=== PATIENT | female | born 1965 | race Caucasian/White ===

== ENCOUNTER → 2018-03-10 | Outpatient (CLI) | payer BC ==
--- NOTE | 2018-03-10 09:11 | CT ---
EXAMINATION TYPE: CT angio chest DATE OF EXAM: 03/10/2018 COMPARISON: NONE HISTORY: Left sided chest pain with shortness of breath. Abnormal d-dimer. CT DLP: 508 mGycm. Automated Exposure Control for Dose Reduction was Utilized. CONTRAST: CTA scan of the thorax is performed with IV Contrast, patient injected with 100 mL of Isovue 370, pul monary embolism protocol. MIP Images are created on CT scanner and reviewed. FINDINGS: LUNGS: The lungs are grossly clear, there is no concerning parenchymal mass or nodule identified. T here is no pleural effusion or pneumothorax seen. The tracheobronchial tree is patent. MEDIASTINUM: There is satisfactory enhancement of the pulmonary artery and its branches, there is no CT evidence for pulmonary embolism. There are no greater than 1 cm mediastinal lymph nodes. There a re prominent borderline enlarged bilateral hilar lymph nodes. There is prominent but subcentimeter pe ricarinal lymph node axial image 52. No cardiomegaly or pericardial effusion is seen. OTHER: There are bilateral subpectoral breast implants redemonstrated. There are 2 hyperdense nodules in the left breast medially 9 mm and laterally 12 mm axial image 50, more prominent nodularity was s een on 2013 mammogram which is most recent mammogram at this institution. Same day ultrasound showed multiple thin-walled cysts. Correlate clinically. I would advise repeat mammogram and/or ultrasound i f has not been performed in last year. IMPRESSION: 1. No CT evidence for acute pulmonary embolism. No suspicious acute pulmonary process. 2. Attention to left breast as detailed above.
== END | disposition home or self-care (01) ==
LOC: RADCTMAIN 08:27
PROVIDERS: ATTEND Internal Medicine
DX: R06.02 Shortness of breath (principal); R79.1 Abnormal coagulation profile; Z87.898 Personal history of other specified conditions
CPT/HCPCS: 71275; Q9967

== ENCOUNTER → 2018-04-06 | Outpatient (CLI) | payer BC ==
--- NOTE | 2018-04-07 09:07 | MM ---
Reason for exam: clinical finding. Last mammogram was performed 6 years and 1 month ago. History: Patient is postmenopausal. Family history of premenopausal breast cancer in maternal aunt at age 40 and breast cancer in maternal grandmother at age 80. Retro-pectoral saline implants in both breasts, December 2007. Indicated problem(s): lump or thickening in the left breast. Physical Findings: Nurse Summary: 0.5/1cm nodule in the left breast at 1 o'clock and a 1 x 1cm nodule in the left breast at 10 o'clock (nurse ts). MG 3D Diag Mammo Imp W/Cad CINDY Bilateral CC and MLO view(s) were taken. Prior study comparison: March 08, 2012, CAD bilateral diagnostic mammogram. November 12, 2008, bilateral diagnostic digital mammog. The breast tissue is heterogeneously dense. This may lower the sensitivity of mammography. Finding #1: There are typically benign round calcifications in both breasts. Finding #2: There are two circumscribed round massex in the left breast at palpable abnormality. Bilateral subpectoral implants. New finding and decrease in size since March 08, 2012. These results were verbally communicated with the patient and result sheet given to the patient on 04/06/18. ASSESSMENT: Incomplete: need additional imaging evaluation, BI-RAD 0 RECOMMENDATION: Ultrasound of the left breast.
--- NOTE | 2018-04-07 09:31 | USB ---
Reason for exam: additional evaluation requested from abnormal screening. History: Patient is postmenopausal. Family history of premenopausal breast cancer in maternal aunt at age 40 and breast cancer in maternal grandmother at age 80. Retro-pectoral saline implants in both breasts, December 2007. US Breast LT Left complete breast ultrasound includes all four quadrants, the retroareolar region and axilla. Finding demonstrates a 0.2 x 0.3 x 0.3cm oval, cystic lesion at 12 o'clock, a 1.5 x 1.7 x 1.1cm oval, cystic lesion at 2 o'clock BB, a 1.3 x 1.1 x 0.9cm oval, cystic complex lesion at 10 o'clock debris filled cyst corresponding to larger simple cyst and a 1.1 x 1.2 x 0.6cm oval node at the left axilla. These results were verbally communicated with the patient and result sheet given to the patient on 04/06/18. ASSESSMENT: Probably benign, BI-RAD 3 RECOMMENDATION: Ultrasound of the left breast in 6 months.
== END | disposition home or self-care (01) ==
LOC: RADMAMWWP 13:27
PROVIDERS: ATTEND Internal Medicine
DX: N63.20 Unspecified lump in the left breast, unspecified quadrant (principal)
CPT/HCPCS: 77062; 77066

== ENCOUNTER → 2018-09-13 | Outpatient (CLI) | payer BC ==
--- NOTE | 2018-09-13 15:48 | BD ---
EXAMINATION TYPE: Axial Bone Density DATE OF EXAM: 09/13/2018 COMPARISON: NONE CLINICAL HISTORY: M [age] Height: 5FT 4 IN Weight: 167 FRAX RISK QUESTIONS: Secondary Osteoporosis: Current Tobacco Use: YES RISK FACTORS HISTORY OF: Postmenopausal woman: AGE 49 MEDICATIONS: Additional Medications: METOPROLOL, LIPITOR, CHANTEX Additional History: EXAM MEASUREMENTS: Bone mineral densitometry was performed using the [employer]. Bone mineral density as measured about the Lumbar spine is: ----- L1-L4(G/cm2): 1.123 T Score Values are as follows: ----- L2: -1.1 ----- L3: -0.5 ----- L4: 0.3 ----- L1-L4: -0.5 BASELINE Bone mineral density about the R hip (g/cm2): 0.903 Bone mineral density about the L hip (g/cm2): 0.905 T Score values are as follows: -----R Neck: -1.0 -----L Neck: -1.0 -----R Total: -0.2 -----L Total: -0.5 BASELINE IMPRESSION: Borderline osteopenia (T Score between -2.5 and -1). There is slightly increased risk of fracture and the patient may be considered for treatment. Re-Screen 2-5 years. NOTE: T-SCORE=SD OF THE YOUNG ADULT MEAN.
== END | disposition home or self-care (01) ==
LOC: RADBDWWP 14:07
PROVIDERS: ATTEND Internal Medicine
DX: M85.89 Other specified disorders of bone density and structure, multiple sites (principal)
CPT/HCPCS: 77080

== ENCOUNTER → 2018-09-22 | Outpatient (CLI) | payer BC ==
--- NOTE | 2018-09-22 11:23 | USB ---
Reason for exam: follow-up at short interval from prior study. History: Patient is postmenopausal. Family history of premenopausal breast cancer in maternal aunt at age 40 and breast cancer in maternal grandmother at age 80. Retro-pectoral saline implants in both breasts, December 2007. Physical Findings: Nurse Summary: palpable at left 11 o'clock 0.25 x 0.25cm (nurse cw). US Breast LT Left complete breast ultrasound includes all four quadrants, the retroareolar region and axilla. Finding demonstrates a 2 x 2 x 2mm oval, cystic, probably benign lesion at 12 o'clock (2 x 3 x 3mm on prior of 04/06/18), a 13 x 9 x 15mm oval, cystic, benign lesion at 2 o'clock and a 12 x 9 x 10mm oval, mixed, complicated cyst at 10 o'clock BB. These results were verbally communicated with the patient and result sheet given to the patient on 09/22/18. ASSESSMENT: Probably benign, BI-RAD 3 RECOMMENDATION: Follow-up diagnostic mammogram of both breasts in 6 months. Ultrasound of the left breast in 6 months.
== END | disposition home or self-care (01) ==
LOC: RADUSWWP 10:08
PROVIDERS: ATTEND Internal Medicine
DX: R92.8 Other abnormal and inconclusive findings on diagnostic imaging of breast (principal)

== ENCOUNTER → 2019-03-16 | Day surgery (SDC) | payer BC ==
[~2019-03-16] MED LIST: LACTATED RINGERS 1,000 ML IV SCH; LIDOCAINE 1% 20 ML VIAL (10MG/ML) FOR IV START INTRADERMA ONE; LIDOCAINE 1% 20 ML VIAL (10MG/ML) FOR IV START INTRADERMA PRN; LIDOCAINE 1% INJ 10MG/ML (20 ML MDV) ONE; PROPOFOL 10 MG/ML 20 ML VIAL IV ONE
[2019-03-16 08:46] VITALS: TEMP 97.9
--- NOTE | 2019-03-16 09:14 | P.GSHP ---
History of Present Illness H&P Date: 03/16/19 Chief Complaint: Colon cancer screening Patient presents today for screening colonoscopy. She has not had one previously. No bowel related complaints. No family history of colon cancer. Past Medical History Past Medical History: Hyperlipidemia, Hypertension History of Any Multi-Drug Resistant Organisms: None Reported Past Surgical History: Breast Surgery Additional Past Surgical History / Comment(s): BREAST AUGMENTATION Past Anesthesia/Blood Transfusion Reactions: No Reported Reaction Smoking Status: Former smoker - Past Family History Father Family Medical History: Cancer Mother Family Medical History: Cancer Medications and Allergies Home Medications Medication Instructions Recorded Confirmed Type Atorvastatin [Lipitor] 20 mg PO DAILY 03/14/19 03/16/19 History Calcium Carbonate/Vitamin D3 1 each PO DAILY 03/14/19 03/16/19 History [Calcium 600-Vit D3 200 Tablet] Irbesartan [Avapro] 150 mg PO DAILY 03/14/19 03/16/19 History L.acidoph,Paracasei, B.lactis 1 each PO DAILY 03/14/19 03/16/19 History [Probiotic] Metoprolol Tartrate [Lopressor] 50 mg PO BID 03/14/19 03/16/19 History Multivitamins, Thera [Multivitamin 1 tab PO DAILY 03/14/19 03/16/19 History (formulary)] Allergies Allergy/AdvReac Type Severity Reaction Status Date / Time Sulfa (Sulfonamide Allergy Rash/Hives Verified 03/16/19 08:44 Antibiotics) Surgical - Exam Vital Signs Temp Pulse Resp BP Pulse Ox 97.9 F 89 16 165/81 100 03/16/19 08:44 03/16/19 08:44 03/16/19 08:44 03/16/19 08:44 03/16/19 08:44 Physical exam: General: Well-developed, well-nourished HEENT: Normocephalic, sclerae nonicteric Abdomen: Nontender, nondistended Extremities: No edema Neuro: Alert and oriented Assessment and Plan (1) Colon cancer screening Narrative/Plan: Will proceed with colonoscopy Current Visit: Yes Status: Acute Code(s): Z12.11 - ENCOUNTER FOR SCREENING FOR MALIGNANT NEOPLASM OF COLON SNOMED Code(s): 424926364
--- NOTE | 2019-03-16 09:29 | P.PCN ---
Date of Procedure: 03/16/19 Procedure(s) Performed: PREOPERATIVE DIAGNOSIS: Colon cancer screening POSTOPERATIVE DIAGNOSIS: Diverticulosis PROCEDURE: Colonoscopy ANESTHESIA: MAC SURGEON: Donal Nunez M.D. SPECIMENS: None ENDOSCOPIC PROCEDURE: The patient was placed on the endoscopy table in the left decubitus position. The Olympus colonoscope was inserted into the anus and passed under direct visualization to the base of the cecum. The appendiceal orifice was visualized. From that point the scope was slowly withdrawn inspe cting all surfaces carefully. There were no neoplastic inflammatory or polypoid lesions throughout the cecum, ascending, transverse, descending, sigmoid and rectum. There was no visible diverticulosis noted. Digital rectal examination was normal. The patient was taken to the recovery room in stable condition per anesthesia guidelines. RECOMMENDATIONS: Increase fiber. Follow-up colonoscopy 10 years
[2019-03-16 10:15] VITALS: BP 112/78; PULSE 69; RESP 20
== END ==
LOC: ORWHC2ENDO 08:25
PROVIDERS: ATTEND Surgery
DX: Z12.11 Encounter for screening for malignant neoplasm of colon (principal); I10 Essential (primary) hypertension; E78.5 Hyperlipidemia, unspecified; Z98.890 Other specified postprocedural states; Z87.891 Personal history of nicotine dependence; Z80.9 Family history of malignant neoplasm, unspecified; Z79.899 Other long term (current) drug therapy; Z88.2 Allergy status to sulfonamides
CPT/HCPCS: J2001; J2704; G0121

== ENCOUNTER → 2020-01-07 | Outpatient (CLI) | payer BC ==
--- NOTE | 2020-01-08 10:10 | MM ---
Reason for exam: additional evaluation requested from prior study. Last mammogram was performed 1 year and 9 months ago. History: Patient is postmenopausal. Family history of premenopausal breast cancer in maternal aunt at age 40 and breast cancer in maternal grandmother at age 80. Retro-pectoral saline implants in both breasts, December 2007. Took hormonal contraceptives. Physical Findings: Nurse did not find any significant physical abnormalities on exam. MG 3D Diag Mammo Imp W/Cad CINDY Bilateral CC, MLO, and ID view(s) were taken. Prior study comparison: April 06, 2018, bilateral MG 3d diag mammo imp w/cad CINDY. March 08, 2012, CAD bilateral diagnostic mammogram. The breast tissue is heterogeneously dense. This may lower the sensitivity of mammography. Bilateral retropectoral saline implants. Circumscribed mass left posterior upper outer quadrant at 1.2cm versus 1.8cm previously. 1.1cm benign oil cyst at the 9-10 o'clock left breast may correspond to a palpable site. A second palpable marker on the left below the nipple. These results were verbally communicated with the patient and result sheet given to the patient on 01/07/20. ASSESSMENT: Incomplete: need additional imaging evaluation, BI-RAD 0 RECOMMENDATION: Ultrasound of the left breast.
--- NOTE | 2020-01-08 10:13 | USB ---
Reason for exam: additional evaluation requested from abnormal screening. History: Patient is postmenopausal. Family history of premenopausal breast cancer in maternal aunt at age 40 and breast cancer in maternal grandmother at age 80. Retro-pectoral saline implants in both breasts, December 2007. Took hormonal contraceptives. US Breast LT Left complete breast ultrasound includes all four quadrants, the retroareolar region and axilla. Finding demonstrates a 1.1 x 0.8 x 1.2cm oval, cystic lesion at 2 o'clock and a 1.2 x 0.8 x 0.9cm hypoechoic lesion at 10 o'clock versus 12 x 11 x 9mm previously compatible with the oil cyst on mammogram. No abnormality at the second palpable at 6-7 o'clock. Underlying breast implants. These results were verbally communicated with the patient and result sheet given to the patient on 01/07/20. ASSESSMENT: Benign, BI-RAD 2 RECOMMENDATION: Routine screening mammogram of both breasts in 1 year.
== END | disposition home or self-care (01) ==
LOC: RADMAMWWP 13:32
PROVIDERS: ATTEND Internal Medicine
DX: R92.8 Other abnormal and inconclusive findings on diagnostic imaging of breast (principal)
CPT/HCPCS: 77062; 77066

== ENCOUNTER → 2020-04-29 | Outpatient (CLI) | payer BC ==
--- NOTE | 2020-04-29 16:00 | XR ---
Lumbar spine HISTORY: M [age], back pain 3 views the lumbar spine There is loss of disc height L4-5 with associated vacuum phenomenon. Multilevel spondylosis is presen t. Sclerosis is present in the posterior elements. Lumbar vertebral bodies show preserved height and alignment. Bone mineralization is reduced. Difficult to exclude spondylolysis at L5. IMPRESSION: Degenerative disc disease and facet arthropathy. Additional findings above, MRI or CT may be of benefit.
== END | disposition home or self-care (01) ==
LOC: RADXRMAIN 15:28
PROVIDERS: ATTEND Internal Medicine
DX: M47.816 Spondylosis without myelopathy or radiculopathy, lumbar region (principal); M51.36 Other intervertebral disc degeneration, lumbar region
CPT/HCPCS: 72100

== ENCOUNTER → 2020-05-22 | Outpatient (CLI) | payer BC ==
--- NOTE | 2020-05-22 14:33 | MR ---
EXAMINATION TYPE: MR lumbar spine wo con DATE OF EXAM: 05/22/2020 COMPARISON: Lumbar spine x-ray April 29, 2020 HISTORY: LBP x 1 year. Degenerative disc disease L5-S1 level. TECHNIQUE: Multiplanar, multisequence imaging of the lumbar spine is performed without IV contrast. FINDINGS: Sagittal images of the lumbar spine show vertebral body heights and alignment to remain sat isfactory. There is multilevel disc desiccation. There is mild to moderate disc space narrowing with heterogeneous Mobic type II endplate changes L4-L5 level. Annular tear L4-L5 level. The conus medull concha is normal in position and signal ending mid L1 level. There is 1.1 cm Tarlov cyst S2 level sagi ttal image 7.r Axial images show T12-L1 and L1-L2 levels to appear within normal limits. Axial images at L2-L3 level show mild broad disc bulge. Spinal canal is preserved. Axial images at L3-L4 level show mild broad disc bulge and annular tear. Minimal effacement of thecal sac. Mild right greater than left facet arthropathy and ligamentum flavum hypertrophy. Patent bilate ral neural foramina. Axial images at L4-L5 level shows broad-based right paracentral/foraminal disc complex and mild-to-mo derate facet arthropathy and ligament hypertrophy bilaterally. There is effacement of the anterior th ecal sac. There is mild left and moderate right-sided neural foraminal narrowing. Axial images at L5-S1 level show mild facet arthropathy bilaterally. Spinal canal is preserved. Paten t bilateral neural foramina. There is partial visualization of 2.8 cm suspected thin-walled cyst left ovary axial image 3. Conside r ultrasound follow-up to further assess in postmenopausal female. IMPRESSION: Multilevel degenerative changes in the lumbar spine greatest at L3-L4 and L4-L5 levels as detailed above.
== END | disposition home or self-care (01) ==
LOC: RADMRIMAIN 12:28
PROVIDERS: ATTEND Internal Medicine
DX: M47.816 Spondylosis without myelopathy or radiculopathy, lumbar region (principal)
CPT/HCPCS: 72148

== ENCOUNTER → 2020-06-30 | Outpatient (CLI) | payer BC ==
--- NOTE | 2020-06-30 09:38 | P.CONS ---
History of Present Illness - Reason for Consult Consult date: 06/30/20 - Chief Complaint Low back pain - History of Present Illness This is a 54-year-old lady who works full-time as an insurance sales manager with at least one year history of lower back pain most started with no precipitating events. The pain is mostly axial at does not radiate down the lower extremities she also denies any numbness or tingling in the lower extremities or any bowel or bladder dysfunction. This pain does not wake the patient up at night and she denies any weight loss recently. The patient denies any treatment with anticoagulants or any history of diabetes. She denies smoking cigarettes but she does drink wine from time to time. Her pain gets worse with physical activity surgery doing housework. She had an MRI on the lumbar spine which showed mild to moderate facet arthropathy at the L4 5 level with ligament hypertrophy bilaterally and moderate right-sided neural foraminal stenosis at the same level it also showed facet arthropathy at the L3 4 level and L5-S1 level with Modic type II changes at the L4 5 level. There is also an annular tear at the L4 5 level. 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 Review of Systems Constitutional: Denies chills, Denies fever Cardiovascular: Denies chest pain, Denies shortness of breath Respiratory: Denies cough Musculoskeletal: Reports as per HPI Neurological: Reports as per HPI Past Medical History Past Medical History: Hyperlipidemia, Hypertension History of Any Multi-Drug Resistant Organisms: None Reported Past Surgical History: Breast Surgery Additional Past Surgical History / Comment(s): BREAST AUGMENTATION. LASER EYE SX Past Anesthesia/Blood Transfusion Reactions: No Reported Reaction Smoking Status: Former smoker - Past Family History Father Family Medical History: Cancer Mother Family Medical History: Cancer Medications and Allergies Home Medications Medication Instructions Recorded Confirmed Type Atorvastatin [Lipitor] 20 mg PO DAILY 03/14/19 03/16/19 History Calcium Carbonate/Vitamin D3 1 each PO DAILY 03/14/19 03/16/19 History [Calcium 600-Vit D3 200 Tablet] Irbesartan [Avapro] 150 mg PO DAILY 03/14/19 03/16/19 History L.acidoph,Paracasei, B.lactis 1 each PO DAILY 03/14/19 03/16/19 History [Probiotic] Metoprolol Tartrate [Lopressor] 50 mg PO BID 03/14/19 03/16/19 History Multivitamins, Thera [Multivitamin 1 tab PO DAILY 03/14/19 03/16/19 History (formulary)] Allergies Allergy/AdvReac Type Severity Reaction Status Date / Time Sulfa (Sulfonamide Allergy Rash/Hives Verified 06/25/20 15:49 Antibiotics) Physical Exam - Constitutional General appearance: obese - EENT Eyes: PERRLA - Neurologic Neuro exam of the lower extremities is within normal limits Positive facet loading test on the lumbar spine Saeed's test negative bilaterally Internal and external rotation of the hip joints did not elicit any pain Straight leg raise test is negative bilaterally Mild tenderness in the lumbar paravertebral musculature bilaterally Neurologic: CNII-XII intact - Musculoskeletal Musculoskeletal: gait normal - Psychiatric Psychiatric: A&O x's 3, appropriate affect, intact judgment & insight Results Results: She had an MRI on the lumbar spine which showed mild to moderate facet arthropathy at the L4 5 level with ligament hypertrophy bilaterally and moderate right-sided neural foraminal stenosis at the same level it also showed facet arthropathy at the L3 4 level and L5-S1 level with Modic type II changes at the L4 5 level. There is also an annular tear at the L4 5 level. 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 Assessment and Plan Plan: This is a 54-year-old lady with mostly axial lower back pain due to facet arthropathy and disc degeneration and small disc tear at the L4 5 level. The patient may benefit from getting diagnostic lumbar medial branch block at the L4 5 and L5-S1 level bilaterally. The procedure was explained to the patient and her questions were answered. I thank you for the referral
[2020-06-30 09:47] VITALS: BP 154/93; PULSE 86; RESP 18; TEMP 98.1
== END | disposition home or self-care (01) ==
LOC: PNWHC3 09:12
PROVIDERS: ATTEND Anesthesiology
DX: M51.87 Other intervertebral disc disorders, lumbosacral region (principal); E78.5 Hyperlipidemia, unspecified; I10 Essential (primary) hypertension; Z87.891 Personal history of nicotine dependence; Z88.2 Allergy status to sulfonamides; M47.816 Spondylosis without myelopathy or radiculopathy, lumbar region; M46.96 Unspecified inflammatory spondylopathy, lumbar region; M48.061 Spinal stenosis, lumbar region without neurogenic claudication; Z79.899 Other long term (current) drug therapy
CPT/HCPCS: 99211

== ENCOUNTER → 2020-08-04 | Outpatient (CLI) | payer BC ==
[2020-08-04 09:54] VITALS: BP 164/100; PULSE 76; RESP 18; TEMP 98.9
--- NOTE | 2020-08-04 10:17 | P.PN ---
Subjective Progress Note Date: 08/04/20 this is follow up visit for this 54 years old female, with a chronic history of severe low back pain, pain is axial in nature and does not study to the lower extremity she denies any numbness or tingling sensation, she denies any weakness in her lower extremity, she reported that the pain increases with any activity, there is a with the quality of life and activity of daily livings, she is done more than 6 weeks of home exercise, without any significant benefit, she is already tried NSAID, ibuprofen , note any significant benefit she already tried Tylenol without any significant benefit she tried muscle relaxant baclofen when necessary without any significant benefit, she she tried heat at home without any benefit she tried activity modification without any benefit Physical Examinations : -Constitutiona : Cooperative , not in acute distress . -HEENT : nech : supple , no Lymphadenopathy , normal thyroid size . : eyes : no ptosis , no icterus, no photophobia . - neurologic : Cranial nerve II to XII intact , no focal neurological deffecit . -psychatric : alert , oriented X 3 , appropriate affect , intact judgment and insight . -Lymphatic : no Lymphadenopathy . - musculoskeltal : Lumber spine moter stegnth lower extremities ,thigh and legs 5/5 Right side , 5/5 Left side deep tendon reflexes : normal Knee Jerk , normal ankle Jerk lumber facet Loading Test =positive Right , positive Left Range of motion of the lumbar spine Flexion 30 degrees, extension 10 degrees strait leg raising test = positive at 45 degree Fabere test= positive Right , and positive LT . tenderness over the Sacroiliac joint on the Right , and Left sides She had an MRI on the lumbar spine which showed mild to moderate facet arthropathy at the L4 5 level with ligament hypertrophy bilaterally and moderate right-sided neural foraminal stenosis at the same level it also showed facet arthropathy at the L3 4 level and L5-S1 level with Modic type II changes at the L4 5 level. There is also an annular tear at the L4 5 level. 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 Assessment and Plan This is a 54-year-old lady with mostly axial lower back pain due to facet arthropathy and disc degeneration and small disc tear at the L4 5 level. Patient already done heat therapy ,activity modification ,and home exercise, and she tried oral medication (NSAID , muscle relaxant ) without any benefit Patient will be good candidate to have diagnostic medial branch block lumbar a malena at L3, L4, L5 targeting the facet joints at L4 5 and L5-S1. The procedure was explained to the patient and her questions were answered. Objective - Vital Signs Vital signs: Vital Signs Temp 98.9 F 08/04/20 09:49 Pulse 76 08/04/20 09:49 Resp 18 08/04/20 09:49 BP 164/100 08/04/20 09:49 Pulse Ox 97 08/04/20 09:49 Intake & Output 08/03/20 08/04/20 08/04/20 18:59 06:59 18:59 Weight 79.379 kg
== END ==
LOC: PNWHC3 09:41
PROVIDERS: ATTEND Specialist
DX: M47.816 Spondylosis without myelopathy or radiculopathy, lumbar region (principal); M51.36 Other intervertebral disc degeneration, lumbar region; S31.010D Laceration without foreign body of lower back and pelvis without penetration into retroperitoneum, subsequent encounter; Z88.2 Allergy status to sulfonamides; Z87.891 Personal history of nicotine dependence
CPT/HCPCS: 99211

== ENCOUNTER 2020-09-12 09:00 | Day surgery (SDC) | payer BC ==
[~2020-09-12 09:00] MED LIST changes: -LIDOCAINE 1% 20 ML VIAL (10MG/ML) FOR IV START INTRADERMA ONE; -LIDOCAINE 1% 20 ML VIAL (10MG/ML) FOR IV START INTRADERMA PRN; -LIDOCAINE 1% INJ 10MG/ML (20 ML MDV) ONE; -PROPOFOL 10 MG/ML 20 ML VIAL IV ONE
[2020-09-12 09:16] VITALS: RESP 16; TEMP 98.6
[2020-09-12] MEDS ORDERED: LACTATED RINGERS 1,000 ML IV ONE ×2 (09:24)
[2020-09-12] MEDS ORDERED: ROPIVACAINE 5MG/ML 20ML VIAL ONE (10:00)
[2020-09-12] MEDS ORDERED: fentaNYL (PF) 50 MCG/ML 2 ML AMP ONE (10:00)
[2020-09-12] MEDS ORDERED: MIDAZOLAM 2 MG/2 ML VIAL ONE (10:00)
[2020-09-12] MEDS ORDERED: methylPREDNISolone ACETATE 40 MG/ML 1 ML VIAL ONE (10:00)
--- NOTE | 2020-09-12 10:18 | P.PCN ---
Date of Procedure: 09/12/20 Procedure(s) Performed: PREOPERATIVE DIAGNOSIS : 1- Lumbar spondylosis with Facet Arthropathy without myelopathy . 2- Lumber degenerative disc disease POSTOPERATIVE DIAGNOSIS: 1- Lumbar spondylosis with Facet Arthropathy without myelopathy . 2- Lumber degenerative disc disease PROCEDURE: Diagnostic bilateral L3 , L4 , and L5 medial branch block under fluoroscopy guidance(fluoroscopy images available in the radiology Department ) ( To target the facet joint between L4-5 , and L5-S1 ) ANESTHESIA: Monitored anesthesia care as per anesthesia department. EBL: Minimal COMPLICATION: None PROCEDURE INDICATION: Chronic low back pain secondary to Facet arthropathy unresponsive to conservative treatment. PROCEDURE DESCRIPTION: the patient was seen and identified in the preop holding area , risks and benefits and possible complications of the procedure and alternative were discussed with the patient, and the patient agreed to proceed with the procedure and signed the consent and vital signs monitored during the procedure and fluoroscopy was used to maximize the benefit and accuracy of the needle placement, and sedation was given to decrease patient anxiety, patient was taken to the procedure room and placed in prone position vital signs monitored in the back prepped with chlorhexidine X3 then under strict sterile technique using a right oblique fluoroscopy ,the junction of the transverse process and the superior articulating process of the right L3 , L4 , and L5 vertebra which corresponding to the fluoroscopy image of the eye of the Dickson dog on the block side for the medial branches and subsequently , after local infiltration of skin and subcu tissuies with Ropivacaine 0.5 % , one mL at each level ,then 22-gauge Quincke-type needles , 3 needle was used , each one of them placed at the junction of the base of the transverse process and the superior articular process at the appropriate level, and the needle was advanced until the periosteum contacted, needle placement confirmed with AP oblique and lateral view and after appropriate needle placement confirmed, and after negative aspiration for heme and CSF and there was no paresthesia 1-1/2 mL of Ropivacaine 0.5% mixed with 20 mg Depo-Medrol , then half mL injected at each level after negative aspiration the needle subsequently removed and the same procedure repeated for the left side at left side at L3 , L4 and L5 levels. At the end of the procedure and the needles removed and a bandage applied after the skin was cleaned the cleaning solution patient taken to recovery room in stable condition and monitors in the recovery room for 20-30 minutes and discharged home in stable condition after discharge criteria met and patient will follow up with the pain clinic in 2-4 weeks
[2020-09-12] MEDS ORDERED: IV FLUID CONTINUATION 1,000 ML IV ONE (10:20)
[2020-09-12 10:50] VITALS: BP 98/64; PULSE 62
--- NOTE | 2020-09-12 11:22 | FL ---
Fluoroscopy INDICATION: Pain FINDINGS: Fluoroscopy time: 11 seconds. Images obtained: 4. IMPRESSIONS: 1. Documentation of fluoroscopy.
== END 2020-09-12 10:58 | disposition home or self-care (01) ==
LOC: ORPAIN 09:00
PROVIDERS: ATTEND Specialist
DX: G89.29 Other chronic pain (principal); M47.816 Spondylosis without myelopathy or radiculopathy, lumbar region; M51.36 Other intervertebral disc degeneration, lumbar region; Z88.2 Allergy status to sulfonamides; I10 Essential (primary) hypertension; E78.5 Hyperlipidemia, unspecified; Z87.891 Personal history of nicotine dependence; Z79.899 Other long term (current) drug therapy
CPT/HCPCS: 64493; 64494; J2250; J1030; J3010; J2795

== ENCOUNTER → 2020-10-15 | Outpatient (CLI) | payer BC ==
[2020-10-15 09:20] VITALS: BP 157/90; PULSE 75; RESP 18; TEMP 98.5
--- NOTE | 2020-10-15 09:46 | P.PN ---
Subjective Progress Note Date: 10/15/20 This is follow up visit for this 54 years old female, with a chronic history of severe low back pain, pain is axial in nature and does not radiates to the lower extremity, she denies any numbness or tingling sensation, she denies any weakness in her lower extremity, she reported that the pain increases with any activity, there is a with the quality of life and activity of daily livings, she is done more than 6 weeks of home exercise, without any significant benefit, she is already tried NSAID, ibuprofen , note any significant benefit she already tried Tylenol without any significant benefit she tried muscle relaxant baclofen when necessary without any significant benefit, she she tried heat at home without any benefit she tried activity modification without any benefit, recently we did diagnostic medial branch block lumbar area at L3, L4 , L5 , bilaterally and she reported that she got 100% relief of her pain for a few days Physical Examinations : -Constitutiona : Cooperative , not in acute distress . -HEENT : nech : supple , no Lymphadenopathy , normal thyroid size . : eyes : no ptosis , no icterus, no photophobia . - neurologic : Cranial nerve II to XII intact , no focal neurological deffecit . -psychatric : alert , oriented X 3 , appropriate affect , intact judgment and insight . -Lymphatic : no Lymphadenopathy . - musculoskeltal : Lumber spine moter stegnth lower extremities ,thigh and legs 5/5 Right side , 5/5 Left side deep tendon reflexes : normal Knee Jerk , normal ankle Jerk lumber facet Loading Test =positive Right , positive Left Range of motion of the lumbar spine Flexion 30 degrees, extension 10 degrees strait leg raising test = positive at 45 degree Fabere test= positive Right , and positive LT . tenderness over the Sacroiliac joint on the Right , and Left sides She had an MRI on the lumbar spine which showed mild to moderate facet arthropathy at the L4 5 level with ligament hypertrophy bilaterally and moderate right-sided neural foraminal stenosis at the same level it also showed facet arthropathy at the L3 4 level and L5-S1 level with Modic type II changes at the L4 5 level. There is also an annular tear at the L4 5 level. 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 Assessment and Plan This is a 54-year-old lady with mostly axial lower back pain due to facet arthropathy and disc degeneration and small disc tear at the L4 5 level. Patient already done heat therapy ,activity modification ,and home exercise, and she tried oral medication (NSAID , muscle relaxant ) without any benefit Patient will be good candidate to have second diagnostic medial branch block lumbar area at L3, L4, L5 targeting the facet joints at L4 5 and L5-S1. hand 100% relief of her pain after the first diagnostic medial branch block The procedure was explained to the patient and her questions were answered. - PQRS measures = - Patient's medications are documented in the chart. -Tobacco use is positive/negative and counseling.Given. -Patient's has not received pneumococcal vaccine. -Advanced care planning discussed, patient not eligible. -Opiate contract not signed. -Pain positive and follow-up visit/procedure is scheduled. -Patient's blood pressure measured [ 157/90 ] , and documented in the record ,and patient will follow up with the primary care. -Patient's weight was measured and body mass index [ 30 ] above t he,within the normal limits and counseling was done. and patient will follow- up with the primary care physician. -Patient was not identified as an unhealthy alcohol user Objective - Vital Signs Vital signs: Vital Signs Temp 98.5 F 10/15/20 09:16 Pulse 75 10/15/20 09:16 Resp 18 10/15/20 09:16 BP 157/90 10/15/20 09:16 Pulse Ox 99 10/15/20 09:16
== END ==
LOC: PNWHC3 09:11
PROVIDERS: ATTEND Specialist
DX: M51.36 Other intervertebral disc degeneration, lumbar region (principal); M46.96 Unspecified inflammatory spondylopathy, lumbar region; Z88.2 Allergy status to sulfonamides
CPT/HCPCS: 99211

== ENCOUNTER 2020-11-14 06:49 | Day surgery (SDC) | payer BC ==
[2020-11-13 12:10] VITALS: BMI 30.4
[2020-11-14 07:30] VITALS: TEMP 96.1
[2020-11-14] MEDS ORDERED: ROPIVACAINE 5MG/ML 20ML VIAL ONE (07:45)
[2020-11-14] MEDS ORDERED: TRIAMCINOLONE ACETONIDE 40 MG/ML 1 ML VIAL ONE (07:45)
[2020-11-14] MEDS ORDERED: MIDAZOLAM 2 MG/2 ML VIAL ONE (07:45)
[2020-11-14] MEDS ORDERED: fentaNYL (PF) 50 MCG/ML 2 ML AMP ONE (07:45)
--- NOTE | 2020-11-14 08:01 | P.PCN ---
Date of Procedure: 11/14/20 Surgeon: Waleska Nieves Pathology: none sent Condition: stable Disposition: PACU Description of Procedure: PREOPERATIVE DIAGNOSIS : 1- Lumbar spondylosis with Facet Arthropathy without myelopathy . 2- Lumber degenerative disc disease POSTOPERATIVE DIAGNOSIS: 1- Lumbar spondylosis with Facet Arthropathy without myelopathy . 2- Lumber degenerative disc disease PROCEDURE: Diagnostic bilateral L4 -5 , and L5-S1 medial branch block under fluoroscopy Physician: Waleska Nieves MD ANESTHESIA: Local with 1% lidocaine; IV moderate conscious sedation with Versed 2 mg . EBL: Negligible COMPLICATION: None. PROCEDURE INDICATION: Chronic low back pain secondary to Facet arthropathy unresponsive to conservative treatment. PROCEDURE DESCRIPTION: the patient was seen and identified in the preop holding area , risks and benefits and possible complications of the procedure and alternatives were discussed with the patient, and the patient agreed to proceed with the procedure and signed the consent. IV was started and vital signs monitored during the procedure and fluoroscopy was used to maximize the benefit and accuracy of the needle placement, sedation was given to decrease patient anxiety, patient was taken to the procedure room and placed in prone position vital signs monitored. The patient was brought into the procedure room and placed in prone position. Skin was prepped with Chloraprep and draped in a sterile manner. Lidocaine 1% was used to numb the skin up at the target points that were chosen as follows: at the L5-S1 level which corresponds to the dorsal ramus of L5 the target points were at the superior medial aspect of the sacral ala on each side of the spine on the AP view of fluoroscopy, and for theL3 and L4 medial branches the target points were the connection between the transverse process and the superior articular process of L4 and L5 respectively on the oblique views of fluoroscopy. I used 22-gauge 3-1/2 inch Quincke spinal needles for this procedure and after contacting bone at the target points mentioned above I injected 1 mL of a mixture of Kenalog 40 mg +5 MLS of Ropivacaine 0.5% PF . Patient tolerated procedure well. At the end of the procedure the needles removed and a bandage applied after the skin was cleaned the cleaning solution. patient was then taken to the recovery room in stable condition and monitored in the recovery room for 20-30 minutes and discharged home in stable condition after discharge criteria met . A copy of the needle placement picture was saved to the C-arm machine.
[2020-11-14] MEDS ORDERED: IV FLUID CONTINUATION 1,000 ML IV ONE (08:10)
[2020-11-14 08:19] VITALS: PULSE 58; RESP 16
[2020-11-14 08:24] VITALS: BP 93/60
--- NOTE | 2020-11-14 08:34 | FL ---
EXAMINATION TYPE: FL guided pain mgmt statistic DATE OF EXAM: 11/14/2020 HISTORY: Fluoroscopy time 6 seconds of fluoroscopy provided. IMPRESSION: 1. Fluoroscopy time.
== END 2020-11-14 08:48 | disposition home or self-care (01) ==
LOC: ORPAIN 06:49
PROVIDERS: ATTEND Anesthesiology
DX: G89.29 Other chronic pain (principal); M47.816 Spondylosis without myelopathy or radiculopathy, lumbar region; I10 Essential (primary) hypertension; K21.9 Gastro-esophageal reflux disease without esophagitis; Z78.0 Asymptomatic menopausal state; Z79.899 Other long term (current) drug therapy; Z88.2 Allergy status to sulfonamides
CPT/HCPCS: 64493; 64494; J2250; J3301; J3010; J2795

== ENCOUNTER → 2020-12-03 | Outpatient (CLI) | payer BC ==
--- NOTE | 2020-12-03 16:07 | P.PN ---
Subjective Progress Note Date: 12/03/20 Mrs. Meraz is a 55-year-old female presenting to clinic today for follow-up evaluation after her second confirmatory lumbar medial branch block. On 11/14/2020 she had a bilateral lumbar medial branch block at L4 5 and L5-S1. Since this procedure she was reported 100% pain relief. She is able to perform her daily activities without limitations from pain. She would like to move forward with radiofrequency ablation of her lumbar bilateral L4 5 and L5-S1. Her continued pain relief. Objective - Exam Physical Examinations : -Constitutiona : Cooperative , not in acute distress . -HEENT : nech : supple , no Lymphadenopathy , normal thyroid size . : eyes : no ptosis , no icterus, no photophobia . - neurologic : Cranial nerve II to XII intact , no focal neurological deffecit . -psychatric : alert , oriented X 3 , appropriate affect , intact judgment and insight . -Lymphatic : no Lymphadenopathy . - musculoskeltal : Lumber spine moter stegnth lower extremities ,thigh and legs 5/5 Right side , 5/5 Left side deep tendon reflexes : normal Knee Jerk , normal ankle Jerk lumber facet Loading Test =positive Right , positive Left Range of motion of the lumbar spine Flexion 30 degrees, extension 10 degrees strait leg raising test = negative Assessment and Plan Assessment: Assessment: Lumbar degenerative disc disease, lumbar spondylosis and arthropathy without myelopathy Plan: Since patient had such significant relief with her diagnostic and confirmatory medial branch block should continue forward with a radiofrequency ablation of the lumbar region. His B bilateral L4 5 and L5-S1. - PQRS measures = - Patient's medications are documented in the chart. -Tobacco use is positiveand counseling.Given. -Patient's has not received pneumococcal vaccine. -Advanced care planning discussed, patient not eligible. -Opiate contract signed. -Pain positive and follow-up visit/procedure is scheduled. -Patient's blood pressure measured [ 153/97 ] , and documented in the record ,and patient will follow up with the primary care. -Patient was not identified as an unhealthy alcohol user Time with Patient: Less than 30
[2020-12-04 14:41] VITALS: BP 153/97; PULSE 89; RESP 18; TEMP 99
== END ==
LOC: PNWHC3 13:35
PROVIDERS: ATTEND Student in an Organized Health Care Education/Training Program
DX: M51.36 Other intervertebral disc degeneration, lumbar region (principal); M47.816 Spondylosis without myelopathy or radiculopathy, lumbar region; Z87.891 Personal history of nicotine dependence; Z88.2 Allergy status to sulfonamides
CPT/HCPCS: 99211

== ENCOUNTER 2021-01-23 06:56 | Day surgery (SDC) | payer BC ==
[2021-01-21 15:17] VITALS: BMI 30.9
[2021-01-23 07:14] VITALS: TEMP 96.4
[2021-01-23] MEDS ORDERED: LACTATED RINGERS 1,000 ML IV ONE (07:24)
[2021-01-23] MEDS ORDERED: ROPIVACAINE 5MG/ML 20ML VIAL ONE (07:46)
[2021-01-23] MEDS ORDERED: MIDAZOLAM 2 MG/2 ML VIAL ONE (07:46)
[2021-01-23] MEDS ORDERED: methylPREDNISolone ACETATE 40 MG/ML 1 ML VIAL ONE (07:46)
[2021-01-23] MEDS ORDERED: .fentaNYL (PF) 50 MCG/ML 2 ML AMP ONE (07:46)
--- NOTE | 2021-01-23 08:22 | P.PCN ---
Date of Procedure: 01/23/21 Procedure(s) Performed: PREOPERATIVE DIAGNOSIS: 1-Lumbar Spondylosis with Facet Arthropathy without myelopathy. 2- Lumber degenerative disc disease. POSTOPERATIVE DIAGNOSIS: 1- Lumbar Spondylosis with Facet Arthropathy without myelopathy. 2- Lumber degenerative disc disease. PROCEDURES : Bilateral Radiofrequency thermocoagulation, L3 , L4 , and L5 medial branch, with fluoroscopic guidance (fluoroscopy images available in the radiology department) ( to denervate the facet joint at bilateral L4-5 ,and L5-S1 levels ). ANESTHESIA: Monitored anesthesia care as per anesthesia department . EBL: Minimal PROCEDURE INDICATION: The patient with low back pain secondary to lumbar facet arthropathy who had more than 50% relief of her pain with previous diagnostic lumbar medial branch block with bupivacaine. PROCEDURE DESCRIPTION / TECHNIQUE: The patient was seen and identified in the preoperative area. Risks, benefits, complications, including but not limited to risk of infection ,bleeding , allergic reactions to the medications and no complete pain releife , and alternatives were discussed with the patient, the patient agreed to proceed with the procedure and signed the consent. IV was started. Vital signs remained stable throughout the procedure. Patient was taken to the OR and time out was completed. The patient was placed in the prone position on the procedure table. The lumber area was prepped and draped in the usual sterile fashion. . Vital signs were closely monitored during the procedure .IV sedation was used during the procedure to decrease patients anxiety. Using AP and then oblique fluoroscopy, the ``eye of the Dickson dog co rresponding to the connection between the superior and transverse articular processes of right L3, L4, and L5 were identified, marked, and localized with 1% lidocaine. Subsequently, a 18 [id number] radiofrequency cannula with a 10- mm active tip was advanced guided by fluoroscopy to each of the``eyes of the Dickson dog at right L3, L4, and L5. Each site then underwent sensory testing at 50 Hz and 0 to 1 volt and motor testing at 2.5 Hz and 0 to 3 volt with local stimulation, but no radicular symptoms down the legs. Thereafter each sites underwent radiofrequency thermocoagulation at 80 degrees celsius for 90 seconds after injecting 0.5 ml of PF Ropivacaine 1ml, then after the thermocoagulation done , 1 ml of the block solution containing Depo-Medrol 20 mg and 3 ml of Ropivacaine 0.5% was injected at the right L3 , L4 , and L5 , levels after negative aspiration of CSF and blood and with no paresthesias. Cannulas were retracted while injecting lidocaine 1% until the needle is out. The same procedure was repeated at the level of Left L3, L4, and L5 levels. At the end of the procedure, the skin was cleansed and bandages were applied. COMPLICATIONS: No acute complications. DISPOSITION / PLANS: The patient was placed in a supine position and transferred to the recovery area in a stable condition for observation and was discharged from the recovery room after meeting discharge criteria. Home discharge instructions given to the patient by the staff. The patient was reexamined prior to discharge. The patient will schedule a follow up in the clinic in 2-4 weeks.
[2021-01-23] MEDS ORDERED: IV FLUID CONTINUATION 1,000 ML IV ONE (08:26)
[2021-01-23 08:33] VITALS: RESP 16
--- NOTE | 2021-01-23 08:41 | FL ---
EXAMINATION TYPE: FL guided pain mgmt statistic DATE OF EXAM: 01/23/2021 FLUOROSCOPY Fluoroscopy time of 40 seconds was used during bilateral lumbar facet radiofrequency ablation. 6 geremias ge/s document/s the procedure.
[2021-01-23 08:43] VITALS: BP 98/52; PULSE 64
[2021-01-23] MEDS ORDERED: LACTATED RINGERS 1,000 ML IV SCH (08:45)
== END 2021-01-23 09:01 | disposition home or self-care (01) ==
LOC: ORPAIN 06:56
PROVIDERS: ATTEND Specialist
DX: M47.26 Other spondylosis with radiculopathy, lumbar region (principal); M51.36 Other intervertebral disc degeneration, lumbar region
CPT/HCPCS: 64635; 64636; J2250; J1030; J3010; J2795

== ENCOUNTER → 2021-06-30 | Outpatient (CLI) | payer BC ==
--- NOTE | 2021-06-30 18:14 | BD ---
EXAMINATION TYPE: Axial Bone Density DATE OF EXAM: 06/30/2021 COMPARISON: 09/13/2018 CLINICAL HISTORY: 55 years year old Female. ICD-10 CODE: M85.9 Disorder of bone Height: 63 IN Weight: 173 LBS FRAX RISK QUESTIONS: History of Fracture in Adulthood: RT RIBS AGE 51, LT FOOT AGE 50 RISK FACTORS HISTORY OF: Family History of Osteoporosis: MOTHER Active: YES Diet low in dairy products/other sources of calcium: YES Postmenopausal woman: AGE 49 MEDICATIONS: Additional Medications: CALCIUM,VIT D, METOPROLOL, AMLODIPINE, IRBESARTAN, ATORVASTATIN EXAM MEASUREMENTS: Bone mineral densitometry was performed using the [employer] System. Bone mineral density as measured about the Lumbar spine is: ----- L1-L4(G/cm2): 1.025 T Score Values are as follows: ----- L1: -1.7 ----- L2: -1.8 ----- L3: -1.2 ----- L4: -0.5 ----- L1-L4: -1.3 Bone mineral density has: Decreased -7.9% since study of: 09/13/2018 Bone mineral density about the R hip (g/cm2): 0.892 Bone mineral density about the L hip (g/cm2): 0.838 T Score values are as follows: -----R Neck: -1.0 -----L Neck: -1.4 -----R Total: -0.8 -----L Total: -0.8 Bone mineral density has: Decreased -5.5% since study of: 09/13/2018 FRAX%s: The graph provided illustrates a 11.0 chance for a major osteoporotic fx and a 0.9 chance for the hips probability for fx in 10 years time. IMPRESSION: Osteopenia (T Score between -2.5 and -1). There is slightly increased risk of fracture and the patient may be considered for treatment. Re-Screen 2-5 years. NOTE: T-SCORE=SD OF THE YOUNG ADULT MEAN.
--- NOTE | 2021-07-03 10:54 | MM ---
Reason for Exam: Screening (asymptomatic). Last mammogram was performed 1 year(s) and 6 month(s) ago. Patient History: Menarche at age 13. First Full-Term at age 25. Postmenopausal. Hormonal Contraceptives, ending at age 20. 12/2007, Bilateral Implants. Maternal grandmother had breast cancer, age 80. Maternal aunt had breast cancer, age 40. Risk Values: Pamela 5 year model risk: 1.0%. NCI Lifetime model risk: 7.5%. Film Views: 3D and 2D Synthesized Bilateral CC views were taken. 3D and 2D Synthesized Bilateral MLO views were taken. 3D and 2D Synthesized Bilateral ID views were taken. 3D and 2D Synthesized Left XCCLID views were taken. Prior Study Comparison: 03/08/2012 Bilateral Diagnostic Mammogram, [facility]. 04/06/2018 Bilateral Diagnostic Mammogram, [facility]. 01/07/2020 Bilateral Diagnostic Mammogram, [facility]. Tissue Density: There are scattered fibroglandular densities. Findings: Analyzed By CAD. There is no suspicious group of microcalcifications or new suspicious mass in either breast. Overall Assessment: Benign, BI-RAD 2 Management: Screening Mammogram of both breasts in 1 year. Electronically signed and approved by: Sandeep Monge M.D. Radiologis
== END | disposition home or self-care (01) ==
LOC: RADMAMWWP 14:55
PROVIDERS: ATTEND Internal Medicine
DX: Z12.31 Encounter for screening mammogram for malignant neoplasm of breast (principal); M85.9 Disorder of bone density and structure, unspecified
CPT/HCPCS: 77063; 77067; 77080

== ENCOUNTER → 2024-02-16 | Outpatient (CLI) | payer BC ==
--- NOTE | 2024-02-17 09:27 | MM ---
Reason for Exam: Screening (asymptomatic). Last mammogram was performed 1 year(s) and 8 month(s) ago. Patient History: Menarche at age 13. First Full-Term at age 25. Postmenopausal. Hormonal Contraceptives, ending at age 20. 05/23/2023, Bilateral Implant Removal. 05/23/2023, Bilateral Implants. 12/2007, Bilateral Implants. Maternal grandmother had breast cancer, age 80. Maternal aunt had breast cancer, age 40. Risk Values: Pamela 5 year model risk: 1.1%. NCI Lifetime model risk: 7.1%. Prior Study Comparison: 04/06/2018 Bilateral Diagnostic Mammogram, [facility]. 01/07/2020 Bilateral Diagnostic Mammogram, [facility]. 06/30/2021 Bilateral MG 3D screen mammo imp/cad., [facility]. 07/02/2022 Bilateral Screening Mammogram, [facility]. Tissue Density: There are scattered areas of fibroglandular density. Findings: Analyzed By CAD. Bilateral breast implants appear intact. Right breast: There is no suspicious group of microcalcifications or new suspicious mass. Left breast: There is no suspicious group of microcalcifications or new suspicious mass. Similar asymmetry left breast on MLO implant displaced view approximately 7.2 cm nipple. Dating back to at least 2019. Overall Assessment: Benign, BI-RAD 2 Management: Screening Mammogram of both breasts in [address] [facility] will attempt to contact patient to return for supplemental views and ultrasound if indicated. Patient should continue monthly self-breast exams. A clinical breast exam by your physician is recommended on an annual basis. This exam should not preclude additional follow-up of suspicious palpable abnormalities. Note on Pamela scores and lifetime risk: 1. A Pamela score greater than 3% is considered moderate risk. If this is the case, consider specialist referral to assess eligibility for a risk reducing agent. 2. If overall lifetime risk for the development of breast cancer is 20% or higher, the patient may qualify for future screening with alternating mammogram and breast MRI. [facility], , 02/17/2024 9:24 AM. Electronically signed and approved by: Blaise Kong DO
--- NOTE | 2024-02-20 07:42 | BD ---
EXAMINATION TYPE: Axial Bone Density DATE OF EXAM: 02/16/2024 CLINICAL HISTORY: 58 years old Female. ICD-10 CODE: M81.0 Osteopenia , Additional History: Height: 63 Weight: 158 FRAX RISK QUESTIONS: History of Fracture in Adulthood: yes Secondary Osteoporosis: RISK FACTORS HISTORY OF: MEDICATIONS: EXAM MEASUREMENTS: Bone mineral densitometry was performed using the [employer] System. Bone mineral density as measured about the Lumbar spine is: ----- L1-L4(G/cm2): 1.078 T Score Values are as follows: ----- L1: -1.6 ----- L2: -1.2 ----- L3: -0.7 ----- L4: -0.4 ----- L1-L4: -0.9 Z Score Values are as follows: ----- L1: -0.8 ----- L2: -0.5 ----- L3: 0.0 ----- L4: 0.4 ----- L1-L4: -0.1 Bone mineral density has: Increased 5.2% since study of: 06-30-21 Bone mineral density about the R hip (g/cm2): 0.903 Bone mineral density about the L hip (g/cm2): 0.894 T Score values are as follows: -----R Neck: -1.4 -----L Neck: -1.5 -----R Total: -0.8 -----L Total: -0.9 Z Score values are as follows: -----R Neck: -0.4 -----L Neck: -0.5 -----R Total: -0.2 -----L Total: -0.3 Bone mineral density has: Decreased -1.4% since study of: 06-30-21 FRAX%s: The graph provided illustrates a 12.5% chance for a major osteoporotic fx and a 1% chance for the hips probability for fx in 10 years time. IMPRESSION: Osteopenia (T Score between -2.5 and -1). There is slightly increased risk of fracture and the patient may be considered for treatment. Re-Screen 2-5 years. NOTE: T-SCORE=SD OF THE YOUNG ADULT MEAN. [facility], , 02/20/2024 7:40 AM
== END | disposition home or self-care (01) ==
LOC: RADMAMWWP 12:41
PROVIDERS: ATTEND Internal Medicine
DX: Z12.31 Encounter for screening mammogram for malignant neoplasm of breast (principal); M81.0 Age-related osteoporosis without current pathological fracture; Z78.0 Asymptomatic menopausal state; Z80.3 Family history of malignant neoplasm of breast; M85.80 Other specified disorders of bone density and structure, unspecified site; R92.323 Mammographic fibroglandular density, bilateral breasts
CPT/HCPCS: 77063; 77067; 77080

== ENCOUNTER → 2024-06-12 | Outpatient (CLI) | payer BC ==
--- NOTE | 2024-06-12 13:58 | CTL ---
EXAMINATION TYPE: CT Low Dose Lung DATE OF EXAM ORDERED: 06/12/2024 COMPARISON: EXAMINATION TYPE: CT Low Dose Lung DATE OF EXAM ORDERED: 06/12/2024 CLINICAL INDICATION: Female, 58 years old with history of Z12.2 SCREENING LUNG CA Z87.891 FORMER SMOK ER, history of tobacco use, Lung cancer screening CT DLP: [address] CTDI: 2.07 mGy Automated exposure control for dose reduction was used. Comparison: None TECHNIQUE: Low dose computed tomography scan was performed through the chest at 1 mm thick sections a nd reconstructed images in multiple planes at 1 mm and [address] DIAGNOSTIC QUALITY: Satisfactory FINDINGS: There is no suspicious lung mass or nodule. There are 2 or 3 scattered micronodules in the right lowe r lobe and left upper lobe. The lungs are clear and there is no abnormal airspace consolidation or interstitial density. There is no mediastinal, hilar or axillary adenopathy. There is no pleural effusion, pleural thickening or pneumothorax. No focal osseous lesions are seen. There are bilateral breast implants. Limited scans the upper abdomen reveals no gross abnormality IMPRESSION: 1. Lung rads Category 2 benign. Continue routine screening at yearly intervals. 2. No acute cardiopulmonary disease. [facility], , 06/12/2024 1:56 PM
== END | disposition home or self-care (01) ==
LOC: RADCTMAIN 12:51
PROVIDERS: ATTEND Internal Medicine
DX: Z12.2 Encounter for screening for malignant neoplasm of respiratory organs (principal); Z87.891 Personal history of nicotine dependence; Z98.82 Breast implant status
CPT/HCPCS: 71271